=== PATIENT | female | born 1970 | race Caucasian/White ===

== ENCOUNTER → 2019-07-01 12:40 | Outpatient (CLI) | payer MEDICARE, MEDICAID, SELFPAY ==
--- NOTE | 2019-07-01 12:44 | CT_ITS ---
STUDY: CT CHEST WITHOUT CONTRAST REASON FOR EXAM: Female, 48 years old. CHEST WALL MASS-THERAPY PLANNING-OVER READ ONLY RADIATION DOSAGE (If Supplied By Facility): CTDIvol = ( 18.11 ) mGy, DLP = ( 810.69 ) mGycm TECHNIQUE: Transaxial imaging was performed without the administration of intravenous contrast material. Individualized dose optimization techniques were used for this CT. COMPARISON: None. FINDINGS: Extremely limited exam. Only 22 axial images through the upper chest. Indeterminate 5 cm soft tissue density in the left pectoralis muscles. This could be a hematoma or neoplastic mass. There may be axillary adenopathy. The very limited views of the underlying lungs are grossly negative. Electronically Signed: Devan Matute MD at 20:21 EDT , Service support , CT/Chest without Contrast
== END ==
PROVIDERS: Referring Provider Radiology Radiation Oncology; Visit Provider Radiology Radiation Oncology
DX: C54.1 Malignant neoplasm of endometrium (principal); C79.89 Secondary malignant neoplasm of other specified sites
CPT/HCPCS: 71250